=== PATIENT | female | born 1955 ===

== ENCOUNTER 2017-06-04 13:31 | Outpatient (CLI) | payer OTHER ==
--- NOTE | 2017-06-04 14:13 | Mammography Report ---
BONE DENSITY STUDY: Postmenopausal screening. DEFINITIONS: BMD = Bone Mineral Density T-score = BMD related to mean peak bone mass of young adult (mean expressed in Standard Deviation) Z-score = Age matched BMD expressed in SD World Health Organization (WHO) Diagnostic Criteria Normal T-score > -1 SD Osteopenia T-score between -1 and -2.4 SD Osteoporosis T-score -2.5 SD or below FINDINGS: The weighted average BMD of lumbar spine L1-L4 is 1.448 with a T-score of 3.6. The weighted average BMD of the left hip is 1.2-3 with a T-score of 2.3. When compared to prior exam in March 2015 there has been generalized improvement in the bony mineralization of both lumbar spine and hip. IMPRESSION: The patient's average T-score is diagnostic for normal bone density and low relative risk for fracture. NOTE: BMD is not the only risk factor for fracture; also consider factors such as the patient's age, risk of falling, previous osteoporotic fracture, family history of osteoporotic fractures, current smoker, and low body weight. Nevarez's triangle is a region of interest in femur, predominantly of trabecular bone. It is not a true anatomic site, and [facility] does not recommend its use clinically.
== END 2017-06-04 13:32 | disposition home or self-care (01) ==
LOC: SPVWC 13:31
PROVIDERS: ATTEND Family Medicine
DX: Z13.820 Encounter for screening for osteoporosis (principal); Z78.0 Asymptomatic menopausal state
CPT/HCPCS: 77080